=== PATIENT | male | born 1945 | race Hispanic/Latino ===

== ENCOUNTER → 2022-03-17 | Outpatient (CLI) | payer MEDICARE ==
[~2022-03-17] MED LIST: ASPI-1197 PO
== END | disposition home or self-care (01) ==
LOC: SHCH 08:39
PROVIDERS: ATTEND Internal Medicine Cardiovascular Disease
DX: I11.9 Hypertensive heart disease without heart failure (principal); E11.51 Type 2 diabetes mellitus with diabetic peripheral angiopathy without gangrene; I73.9 Peripheral vascular disease, unspecified; Z95.2 Presence of prosthetic heart valve
CPT/HCPCS: 93306